=== PATIENT | male | born 1980 | race Caucasian/White ===

== ENCOUNTER 2020-01-12 19:30 | Inpatient (IN) | payer OTHER ==
[2020-01-11] MEDS: HYDROMORPHONE 1MG/1ML INJ IV PRN (23:30)
[~2020-01-12] VITALS: Ht 177.8 cm; Wt 99.8 kg
[2020-01-12] MEDS ORDERED: SODIUM CHLORIDE 0.9% 1000ML 1,000 ML IV STA (19:49)
[2020-01-12] MEDS ORDERED: MORPHINE SULFATE INJ 4 MG/ML INJ 1ML IV STA (19:49)
[2020-01-12] MEDS ORDERED: ONDANSETRON HCL INJ 2MG/ML 2ML 2 MG/ML VIAL IV STA (19:49)
[2020-01-12 20:05] LABS: BASOPHILS # (AUTO) 0.1 (0.0-0.1); BASOPHILS % 0.8 % (0.0-1.0); EOSINOPHILS # (AUTO) 0.1 (0.0-0.4); EOSINOPHILS % 1.2 % (0.0-6.0); HEMATOCRIT 43.5 % (38.2-49.6); LYMPHOCYTES # (AUTO) 1.6 (1.0-3.2); LYMPHOCYTES % 14.7 % (18.0-39.1); MEAN CORPUSCULAR HEMOGLOBIN 33.5 pg (28-32); MEAN CORPUSCULAR HGB CONC 36.8 g/dL (31-35); MEAN CORPUSCULAR VOLUME 91.2 fL (81-99); MONOCYTES # (AUTO) 1.1 (0.2-0.8); MONOCYTES % 10.2 % (4.4-11.3); NEUTROPHILS # (AUTO) 7.7 (2.1-6.9); NEUTROPHILS % 72.7 % (38.7-80.0); PLATELET COUNT 431 x10e3/uL (140-360); RED BLOOD COUNT 4.77 x10e6/uL (4.3-5.7); RED CELL DISTRIBUTION WIDTH 12.5 % (11.7-14.4)
[2020-01-12 20:12] LABS: BILIRUBIN,URINE MODERATE (NEGATIVE); CLARITY,URINE SL CLOUDY (CLEAR); COLOR,URINE ORANGE (YELLOW); KETONES,URINE 1+ (NEGATIVE); LEUKOCYTE ESTERASE ,URINE NEGATIVE (NEGATIVE); NITRITE,URINE NEGATIVE (NEGATIVE); PROTEIN,URINE DIPSTICK 1+ (NEGATIVE); URINE UROBILINOGEN 0.2 mg/dL (0.2 - 1)
[2020-01-12 20:22] LABS: AMORPHOUS SEDIMENT,URINE FEW (FEW); BACTERIA,URINE MODERATE /HPF; EPITHELIAL CELLS,URINE FEW /LPF; MUCUS,URINE MODERATE (RARE); WBC,URINE (MAN) 0-5 /HPF (0-5)
[2020-01-12 20:23] LABS: ALANINE AMINOTRANSFERASE 150 IU/L (0-55); ALBUMIN 3.9 g/dL (3.5-5.0); ALBUMIN/GLOBULIN RATIO 1.2 (0.8-2.0); ALKALINE PHOSPHATASE 82 IU/L (40-150); ANION GAP 16.6 mmol/L (8-16); BLOOD UREA NITROGEN 13 mg/dL (7-26); BUN/CREATININE RATIO 13 (6-25); CALCIUM 10.1 mg/dL (8.4-10.2); CARBON DIOXIDE 23 mmol/L (22-29); CHLORIDE 104 mmol/L (98-107); CREATINE KINASE 88 IU/L (30-200); CREATININE, SERUM 1.04 mg/dL (0.72-1.25); EST GLOMERULAR FILTRATION RATE > 60 ML/MIN (60-); GLUCOSE 147 mg/dL (74-118); LIPASE 492 U/L (8-78); POTASSIUM 3.6 mmol/L (3.5-5.1); SODIUM 140 mmol/L (136-145)
[2020-01-12 20:31] LABS: AMPHETAMINES SCREEN,URINE POSITIVE (NEGATIVE); BENZODIAZEPINES SCREEN,URINE NEGATIVE (NEGATIVE); PHENCYCLIDINE SCREEN,URINE NEGATIVE (NEGATIVE)
[2020-01-12] MEDS ORDERED: ONDANSETRON HCL INJ 2MG/ML 2ML 2 MG/ML VIAL IV PRN (20:45)
[2020-01-12] MEDS ORDERED: HYDROMORPHONE 1MG/1ML INJ IV PRN ×3 (20:45→22:15)
[2020-01-12] MEDS ORDERED: MORPHINE SULFATE 2 MG/ML SYR 1ML IV PRN (20:45)
[2020-01-12] MEDS ORDERED: SODIUM CHLORIDE 0.9% 1000ML 1,000 ML IV SCH (20:45)
[2020-01-12] MEDS ORDERED: MORPHINE SULFATE INJ 4 MG/ML INJ 1ML IV PRN (21:00)
[2020-01-12] MEDS ORDERED: HYDROCHLOROTH12.5 MG PO (21:26)
[2020-01-12] MEDS ORDERED: PROPRANOLOL HCL80 MG PO (21:26)
[2020-01-12] MEDS ORDERED: TRAZODONE HCL50 MG PO (21:26)
[2020-01-12] MEDS ORDERED: FLUOXETINE HCL40 MG PO (21:26)
[2020-01-12] MEDS ORDERED: LOSARTAN POTASS25 MG PO (21:26)
[2020-01-12] MEDS ORDERED: OMEPRAZOLE40 MG PO (21:26)
[2020-01-12] MEDS ORDERED: ADDERALL 20 MG20 MG PO (21:26)
--- NOTE | 2020-01-12 22:00 | NUR ---
Per Dr. Hollingsworth, ok to medicate with morphine at this time. Patient moaning in groaning in pain. VS remain normal.
--- NOTE | 2020-01-12 22:05 | Diagnostic Imaging Report ---
EXAM: CT Abdomen and Pelvis WITH contrast INDICATION: ^Epigastric COMPARISON: None. TECHNIQUE: Abdomen and pelvis were scanned utilizing a multidetector helical scanner from the lung base to the pubic symphysis after administration of IV contrast. Coronal and sagittal reformations were obtained. Routine protocol was performed. Scan was performed when during portal venous phase. IV CONTRAST: 100 mL of Isovue 370 ORAL CONTRAST: Water COMPLICATIONS: None RADIATION DOSE: Total DLP: 800 mGy*cm Estimated effective dose: (DLP x 0.015 x size factor) mSv CTDIvol has been reviewed. It is below the limits set by the Radiation Protocol Committee (RPC). Dose modulation, iterative reconstruction, and/or weight based adjustment of the mA/kV was utilized to reduce the radiation dose to as low as reasonably achievable. FINDINGS: LINES and TUBES: None. LOWER THORAX: Unremarkable HEPATOBILIARY: No focal hepatic lesions. No biliary ductal dilation. GALLBLADDER: No radio-opaque stones or sludge. No wall thickening. SPLEEN: No splenomegaly. PANCREAS: Edematous appearance of the pancreas with mild peripancreatic fat stranding. No discrete pancreatic mass lesion. No ductal dilatation. No fluid collection. ADRENALS: No adrenal nodules KIDNEYS/URETERS: Kidneys enhance symmetrically. No hydronephrosis. No cystic or solid mass lesions. No stones. GI TRACT: No abnormal distention, wall thickening, or evidence of bowel obstruction. Appendix is surgically absent. PELVIC ORGANS/BLADDER: Unremarkable. LYMPH NODES: Prominent subcentimeter upper abdominal lymph nodes, likely reactive. VESSELS: Unremarkable. PERITONEUM / RETROPERITONEUM: No free air or fluid. BONES: Unremarkable. SOFT TISSUES: Unremarkable. IMPRESSION: Acute pancreatitis. No pseudocyst, drainable fluid collection, or other complication. Signed by: Giovanni Smith MD on 01/12/2020 10:02 PM
[2020-01-12] MEDS ORDERED: ACETAMINOPHEN 325 MG TAB PO PRN (22:15)
--- NOTE | 2020-01-12 22:15 | NUR ---
Pt admitted to room 106 via WC from home. Pt alert and oriented to name, hospital, and diagnosis: Pancreatitis. Pt c/o severe abdominal pain, previously medicated in ER. Skin warm and flushed. Ambulatory. Last BM 01/11. Denies dysuria urine dark sade. Oriented to room. Call light within reach. Bed low and locked. Will continue to monitor.
[2020-01-12 22:31] VITALS: BP 152/96
--- NOTE | 2020-01-12 23:00 | NUR ---
Dr. Mclaughlin informed of Pt's elevated pain level, ordered increased Dilaudid 1mg every 3hrs, MRCP, and U/S abdomen.
[2020-01-12 23:30] VITALS: BP 152/96
[2020-01-12] MEDS: HYDROMORPHONE 1MG/1ML INJ IV PRN (23:30)
[2020-01-12] MEDS ORDERED: IOPAMIDOL 370 MG/ML 200 ML INFUS..BTL INJ ONE (23:36)
[2020-01-12] MEDS ORDERED: SODIUM CHLORIDE 0.9% 50ML 50 ML ONE (23:36)
[2020-01-13] MEDS: ONDANSETRON HCL INJ 2MG/ML 2ML 2 MG/ML VIAL IV PRN ×3 (01:30→19:11)
[2020-01-13] MEDS: HYDROMORPHONE 1MG/1ML INJ IV PRN ×4 (02:30→11:19)
[2020-01-13] MEDS: LACTATED RINGER'S 1,000 ML INJ SCH ×3 (03:20→12:35)
[2020-01-13 04:00] VITALS: BP 155/107
[2020-01-13 05:37] LABS: BASOPHILS % 0.3 % (0.0-1.0); EOSINOPHILS # (AUTO) 0.1 (0.0-0.4); EOSINOPHILS % 0.7 % (0.0-6.0); HEMATOCRIT 45.5 % (38.2-49.6); HEMOGLOBIN 16.5 g/dL (14.0-18.0); LYMPHOCYTES # (AUTO) 0.7 (1.0-3.2); LYMPHOCYTES % 4.9 % (18.0-39.1); MEAN CORPUSCULAR HEMOGLOBIN 33.4 pg (28-32); MEAN CORPUSCULAR HGB CONC 36.3 g/dL (31-35); MEAN CORPUSCULAR VOLUME 92.1 fL (81-99); MONOCYTES # (AUTO) 0.9 (0.2-0.8); MONOCYTES % 6.3 % (4.4-11.3); NEUTROPHILS # (AUTO) 11.9 (2.1-6.9); NEUTROPHILS % 87.4 % (38.7-80.0); PLATELET COUNT 391 x10e3/uL (140-360); RED BLOOD COUNT 4.94 x10e6/uL (4.3-5.7); RED CELL DISTRIBUTION WIDTH 12.6 % (11.7-14.4)
[2020-01-13 06:08] LABS: ALANINE AMINOTRANSFERASE 112 IU/L (0-55); ALBUMIN 3.5 g/dL (3.5-5.0); ALBUMIN/GLOBULIN RATIO 1.3 (0.8-2.0); ALKALINE PHOSPHATASE 70 IU/L (40-150); BLOOD UREA NITROGEN 11 mg/dL (7-26); BUN/CREATININE RATIO 12 (6-25); CALCIUM 9.2 mg/dL (8.4-10.2); CARBON DIOXIDE 22 mmol/L (22-29); CHLORIDE 108 mmol/L (98-107); CHOL/HDL RATIO 4.4 (3.9-4.7); CHOLESTEROL 180 MD/DL (0-199); CREATININE, SERUM 0.89 mg/dL (0.72-1.25); EST GLOMERULAR FILTRATION RATE > 60 ML/MIN (60-); GLUCOSE 163 mg/dL (74-118); HDL CHOLESTEROL 41 MG/DL (40-60); LDL CHOLESTEROL 94 MG/DL (60-130); SODIUM 140 mmol/L (136-145); TRIGLYCERIDES 225 MG/DL (0-149)
--- NOTE | 2020-01-13 07:00 | NUR ---
Report given to morning nurse. Pt moaning and groaning c/o abdominal pain, previously medicated. Morning nurse informed Pt will f/u with Dr. Mclaughlin.
[2020-01-13 08:00] VITALS: BP 156/102
[2020-01-13 08:09] LABS: LIPASE 1556 U/L (8-78)
[2020-01-13] MEDS ORDERED: KETOROLAC TROMETHAMINE 30 MG/ML VIAL IV ONE (08:15)
--- NOTE | 2020-01-13 08:49 | NUR ---
MADE COPY OF CARD FROM [facility] AND TOOK TO BUSINESS OFFICE.
[2020-01-13 08:50] VITALS: BP 156/102
--- NOTE | 2020-01-13 10:22 | Diagnostic Imaging Report ---
Abdominal Ultrasound Clinical Diagnosis: Evaluate for biliary obstruction. Elevated lipase. Generalized abdominal pain Comparison: No previous ultrasound abdomen Technique: Multiple transaxial and longitudinal images were obtained through the abdomen with real time ultrasonography. A low-frequency curvilinear transducer was utilized. Multiple images were submitted for interpretation. Report: The patient has large amount of bowel gas that limits the visualization of the abdominal viscera. Liver: The liver measures 15.9 cm in the right midaxillary line. There are no focal masses or abnormal cysts. The echogenicity is normal. Spleen: The spleen measures 12.5 cm in the left mid axillary line. There are no focal masses or cysts. Gallbladder: The transverse diameter is within normal limits. The wall measures 3 mm. There are no shadowing stones visualized. There is no sludge visualized. Sonographic Jain's sign is negative. Biliary tree: There is no evidence of intra or extra hepatic biliary ductal dilatation. The common bile duct measures 3 mm. Portal vein: The portal vein measures 12 mm. There is hepatopedal flow. Hepatic veins: Not visualized Pancreas: The pancreas is not well seen secondary to overlying bowel gas. Ascites: Absent Pleural Effusion: Absent Right kidney: The right kidney measures 10.2 x 4.6 x 3.7 cm. There is no evidence of hydronephrosis, mass, cyst. Left kidney: The left kidney measures 11.3 x 5.5 x 3.9 . There is no evidence of hydronephrosis, mass, cyst. IVC/Aorta: Poorly visualized. Impression: Limited abdominal ultrasound because of bowel gas. There is no significant abnormality of the gallbladder. There is no extrahepatic or intrahepatic biliary dilatation on this exam. Pancreas is not visualized. Signed by: Charli Boo MD on 01/13/2020 10:18 AM
[2020-01-13 13:21] VITALS: BP 152/108
--- NOTE | 2020-01-13 13:25 | NUR ---
Pt. states he is in pain. [facility] provided hospitality and information on how to reach service assistant, if needed. Will follow as able. LENCHO ELIZABETH [facility] Department O: [phone]
--- NOTE | 2020-01-13 13:44 | NUR ---
Dr. Mclaughlin here to see pt.
[2020-01-13] MEDS ORDERED: HYDROMORPHONE 1MG/1ML INJ IV PRN (13:45)
[2020-01-13] MEDS ORDERED: LACTATED RINGER'S 1,000 ML INJ ONE (14:00)
[2020-01-13] MEDS: KETOROLAC TROMETHAMINE 30 MG/ML VIAL IV PRN ×2 (14:31→17:19)
--- NOTE | 2020-01-13 14:38 | Diagnostic Imaging Report ---
MRCP (magnetic resonance cholangiopancreatography) HISTORY: Pancreatitis Comparison: None Technique: Multiplanar and multisequence MRI images of the abdomen were obtained without contrast. Three-dimensional reconstructed images of the biliary tree are also reviewed. FINDINGS: The examination is severely limited by patient respiratory motion. The common bile duct is not well visualized on this examination. However, no dilated tubular structure is seen in the expected location of the common bile duct. The gallbladder demonstrates no intraluminal defect or wall thickening. No definite mass is identified in the region of the ampulla or pancreatic head. No pancreatic ductal dilation is appreciated. Grossly unremarkable appearance of the liver, spleen, adrenal glands, and kidneys. The visualized bowel loops appear normal in caliber. Small bilateral pleural effusions, left greater than right. Small volume ascites is noted. Impression: 1. Severely limited study. 2. Common bile duct is not well visualized on this examination. However, no dilated tubular structure is seen in the expected location of the common bile duct. Suggest correlation with serum bilirubin levels to determine the need for further workup with ERCP. 3. Small volume ascites. 4. Small bilateral pleural effusions, left greater than right. Signed by: Geo Byrne MD on 01/13/2020 2:35 PM
[2020-01-13] MEDS: HYDROMORPHONE 2MG/ML 2 MG/ML ML IV PRN ×2 (14:40→19:11)
[2020-01-13 16:33] VITALS: BP 130/95
--- NOTE | 2020-01-13 19:32 | NUR ---
report given to oncoming nurse, walking rounds complete, pt stable at shift change.
--- NOTE | 2020-01-13 19:45 | NUR ---
REPORT GIVEN FROM DAYTIME NURSE. PATIENT RESTING IN BED, REASSESSED PATIENT FROM PREVIOUS PAIN MEDICATION ADMINISTRATION. PATIENT VOICED THAT PAIN WAS BETTER SINCE ADMINISTRATION, NO SIGNS OF DISTRESS NOTED, PATIENT ALERT AND ORIENTED. CALL LIGHT WITHIN REACH, WILL CONTINUE TO MONITOR.
--- NOTE | 2020-01-13 20:10 | NUR ---
PATIENT RESTING IN BED ALERT AND ORIENTED, NO SIGNS OF DISTRESS NOTED. IV FLUIDS ARE RUNNING AT ORDERED RATE AND PATIENT VOICES NO SEVERE PAIN THIS TIME WHEN ASKED. BED IS IN LOWEST POSITION, BOTH SIDE RAILS ARE UP, CALL LIGHT IS WITHIN EASY REACH, WILL CONTINUE TO MONITOR.
--- NOTE | 2020-01-13 20:20 | NUR ---
PCT INFORMED NURSE THAT SHE WENT BY TO TAKE PATIENT'S VITALS AND THE PATIENT INFORMED HER THAT HE WILL BE USING THE RESTROOM FIRST. PCT INFORMED PATIENT THAT SHE WOULD COME BACK TO ROOM TO TAKE HIS VITALS WHEN HE IS DONE.
[2020-01-13] MEDS ORDERED: NALOXONE HCL INJ 0.4 MG/ML AMP ONE (21:16)
[2020-01-13] MEDS ORDERED: DEXTROSE 50% SYRINGE 50 ML IV ONE (21:26)
[2020-01-13] MEDS ORDERED: SODIUM BICARBONATE 8.4% 50 ML VIAL IV ONE (21:26)
[2020-01-13] MEDS ORDERED: CALCIUM CHLORIDE 10% 1.36 MEQ/ML 10ML SYR IV ONE (21:26)
[2020-01-13] MEDS ORDERED: NALOXONE HCL INJ 0.4 MG/ML AMP IV ONE (21:26)
[2020-01-13] MEDS ORDERED: LIDOCAINE HCL/D5W 4 MG/ML 2000 MG/500 ML BAG IV ONE (21:26)
[2020-01-13] MEDS ORDERED: EPINEPHRINE HCL SYRINGE IV ONE (21:26)
--- NOTE | 2020-01-13 21:35 | NUR ---
PCT CHECKED ON PATIENT BY KNOCKING ON BATHROOM DOOR TO NO RESPONSE. PCT FOUND NURSE AND BOTH ENTERED RESTROOM AND UPON ASSESSMENT FOUND PATIENT UNRESPONSIVE SLUMPED DOWN ON TOILET AT 20:55. BENJA TOVAR WAS CALLED AND PATIENT WAS SAFELY LOWERED DOWN TO THE FLOOR AND CHEST COMPRESSIONS WERE STARTED IMMEDIATELY. BENJA TOVAR TEAM ARRIVED AND PATIENT WAS TRANSPORTED SAFELY FROM FLOOR TO BED USING SLIDING BOARD. CPR WAS RESUMED AFTER PATIENT TRANSPORTED FROM FLOOR TO BED. SEE CODE BLUE SHEETS. TIME OF 21:27.
--- NOTE | 2020-01-13 21:38 | NUR ---
spoke to pamela vital from [facility]. . primary nurse made aware.
--- NOTE | 2020-01-13 21:55 | NUR ---
SPOKE WITH THE PATIENT'S MOTHER AND FATHER AND INFORMED THEM OF THE THE PATIENT'S AND TO REPORT TO HOSPITAL. SPOKE WITH DR. SANCHEZ TO INFORM HIM OF THE PATIENT'S STATUS WELL. AWAITING FOR THE ARRIVAL OF FAMILY.
--- NOTE | 2020-01-13 22:02 | History and Physical ---
CHIEF COMPLAINT: Abdominal pain. HISTORY OF PRESENT ILLNESS: Patient was seen and evaluated early this afternoon at approximately 130pm with nurse Yeni at bedside. 39-year-old male with known history of ADHD, hypertension, as well as some other psychiatric disorders presented to the ED with complaints of acute onset of abdominal pain. The patient reports he has a history of acute pancreatitis in the past of note about a year ago treated in a different facility. He was told that his pancreatitis was secondary to alcoholic pancreatitis. He reports drinking 2 vodka drinks per night on a consistent basis. He does report drinking some alcohol last night. He states that yesterday morning he woke up, he had sudden onset of abdominal pain, epigastrically and progressively got worse throughout the day. Denies chest pain, vomiting, palpations, shortness of breath. Denies any drug abuse. The patient is seen and evaluated at bedside on the medical floor with the nurse present including the mri tech who was drawning blood. He is currently reporting that he has significant pain despite being on IV Dilaudid. Early this morning the nurse called me of his pain and toradol was added to his regimen. I reviewed the ct abdomen with the patient and discussed the findings of acute pancreatitis. REVIEW OF SYSTEMS: Pertinent positive for epigastric abdominal pain. Denies chest pain, vomiting, shortness of breath, diarrhea, palpitations The rest of 14-point review of systems is reviewed with the patient and is negative. ALLERGIES: NO KNOWN DRUG ALLERGIES. HOME MEDICATIONS: Losartan, omeprazole, propranolol, trazodone, Adderall, fluoxetine, hydrochlorothiazide. PAST MEDICAL HISTORY: Hypertension, ADHD, acid reflux, hypertension. PAST SURGICAL HISTORY: Reports none. FAMILY HISTORY: unknown SOCIAL HISTORY: He denies drug history. No smoking. He is a drinker, drinks vodka 2 drinks a day daily for years. PHYSICAL EXAMINATION: VITAL SIGNS: Temperature is 96.5, pulse is 101, respiratory rate is 16, blood pressure is 130/95, pulse ox 99% on room air. GENERAL: Alert and oriented x3. Cooperative on examination. HEENT: Head is normocephalic and atraumatic. Eyes; pupils are equal, round and reactive to light bilaterally. Extraocular movements are intact bilaterally. Throat; no evidence of erythema or exudates in the posterior pharynx. Has poor dentition. NECK: Supple. Good range of motion. PULMONARY: Clear to auscultation bilaterally. No wheezing, no rales, no rhonchi, no crackles appreciated. CARDIOVASCULAR: Positive S1 and S2. No murmurs, rubs, or gallops appreciated, regular rate and rhythm ABDOMEN: Mild Tender to palpation in the epigastric area. No guarding or rebound. Bowel sounds positive. Non-distended, and no concerns for peritonitis MUSCULOSKELETAL: Strength is 5/5 throughout. No evidence of any muscle deficits on examination. No weakness appreciated. SKIN: Intact. Warm to touch. Good cap refill. PSYCHIATRIC: Normal affect and mood. States he is doing well. EXTREMITIES: No edema. Good range of motion throughout. LABORATORY DATA: Labs show white count was 13.5, hemoglobin is 16.5, hematocrit is 45.5, and platelets of 391. Chemistry; sodium 140, potassium 4, chloride 108, bicarb 22, anion gap of 14, BUN is 11, creatinine is 0.9, and glucose 163. A1c is 5.5. Total bilirubin is 0.9, calcium 9.2, AST 50, ALT 112, alkaline phosphatase 70. Troponins were all negative. Total protein 6.2. Triglycerides 225, LDL 94. His lipase level was 1556, on admission is 492. Urinalysis noted. Toxicology screen shows positive amphetamine. MICROBIOLOGY: None. IMAGING STUDIES: CT abdomen and pelvis shows acute pancreatitis, edematous appearance of the pancreas with mild peripancreatic fat stranding, No pseudocyst, drainable fluid collection, or other complications. No free air or fluid appreciated. Abdominal ultrasound shows limited abdominal ultrasound because of bowel gas. There are no significant abnormalities of the gallbladder. There is no extrahepatic or intrahepatic biliary dilatation on examination. MRCP shows common bile duct is not well visualized on exam, however, no dilated tubular structures seen in the expected location of the common bile duct. Small volume ascites. Small bilateral pleural effusions, left greater than right. IMPRESSION: 1. Acute pancreatitis, likely alcoholic pancreatitis. 2. Chronic alcohol abuse. 3. Hypertension. 4. History of multiple psychiatric disorders. 5. Positive Urine drug screen amphetamines on adderall PLAN: At this time, continue with strict n.p.o., IV fluids, and pain control. I did increase the pain medication as his lipase level did increase. MRCP, abdominal ultrasound/ right upper quadrant has been ordered with above results. Lipid panel and A1C ordered with results above. Seems to be likely alcoholic pancreatitis. GI has been consulted for further assistance and evaluation. He will be on Lovenox for DVT prophylaxis. Encourage ambulation. Once his lipase levels continue to improve, we will decrease the pain medication and initiate a diet. He is going to continue with LR 150 mL/h and continue with n.p.o. status. Cardiac telemetry was offered at bedside but the patient refused it during the interview. I discussed plan of care with the patient at bedside with the nurse present throughout the conversation and he verbalized understanding. MD GERA Elkins/[facility]ida /[id number] NATALIE
--- NOTE | 2020-01-13 22:11 | NUR ---
this nurse spoke to family at time. family undecided if they will come up. primary nurse made aware.
--- NOTE | 2020-01-13 22:26 | NUR ---
KP HAS ARRIVED TO SEE FAMILY IN ROOM. Addendum: 01/14/20 at 0323 by Aram Mascorro RN ARRIVED AT [id number]
--- NOTE | 2020-01-13 22:51 | NUR ---
PATIENT'S MOTHER, FATHER, AND BROTHER ARIANA ARRIVED. INFORMED THEM THAT [facility] WILL BE ARRIVING WITHIN 30 MINUTES, THEY HAD PREVIOUSLY REQUESTED. ALLOWED FAMILY TO PRIVATELY GRIEVE.
--- NOTE | 2020-01-13 23:42 | NUR ---
ASSESSMENT: Spirit[facility] Nursing Tech called out per family request. Pt's family overwhelmed with grief. Pt's family expressing emotions thru words and tears. Intervention: Provided empathic listening and grief support. Provided committal prayer. Outcome: Pt's family expressed appreciation for support. Followed up w/ FABIAN. LENCHO [facility] Spiritual Care Department O: [phone]
--- NOTE | 2020-01-13 23:55 | NUR ---
spoke to giuliano farrell at [facility] regarding case. primary nurse made aware.
--- NOTE | 2020-01-14 00:45 | NUR ---
AFTER SPEAKING WITH FAMILY, THEY HAD DECIDED TO HAVE [facility] COME AND TRANSPORT PATIENT FROM HOSPITAL. CONSENT WAS SIGNED BY FATHER WITH THE PRESENCE OF ANOTHER NURSE A WITNESS. THE HOME WAS PROMPTLY CALLED AND VOICED THAT THEY WOULD COME TO RECEIVE THE PATIENT WITHIN AN HOUR TO AN HOUR AND A HALF.
--- NOTE | 2020-01-14 02:30 | NUR ---
[facility] HAS COME TO TAKE PATIENT AWAY. TIME OF PICKUP WAS AT 0227.
[2020-01-14] MEDS ORDERED: ENOXAPARIN 30 MG/0.3 ML SYR SC SCH (17:00)
--- NOTE | 2020-01-15 03:02 | Discharge Summary ---
DATE OF : 01/13/2020. FINAL DIAGNOSES: 1. Sudden , unknown etiology. 2. Cardiac arrest/pulseless electrical activity. 3. Acute pancreatitis, likely secondary to alcoholic pancreatitis. 4. History of chronic alcohol abuse. 5. Hypertension. 6. History of attention deficit hyperactivity disorder, on Adderall. 7. The time of was 2126. CONSULTANTS: GI. VITAL SIGNS: Temperature is 96.5, pulse 101, respiratory rate is 16, blood pressure 130/95, pulse ox 99% on room air. LABORATORY DATA: Labs show white count was 13, hemoglobin 16, hematocrit 45, and platelets of 391. Chemistry; sodium 140, potassium 4, chloride 108, bicarb 22, anion gap of 14, BUN of 11, creatinine of 0.89, glucose 163. Hemoglobin A1c 5.5. Calcium 9.2, total bilirubin is 0.9, AST 50, ALT 112, alkaline phosphatase 70. CK is 88, CK-MB 1.7. Troponins were negative x3. Albumin 3.5, triglycerides 225, LDL 94. His lipase was 492 on admission, then increased to 1556. Urinalysis shows 1+ ketones, 1+ protein, cloudy urine. Urine drug screen shows positive amphetamine. Alcohol level was negative. EKG: normal sinus rhythm MICROBIOLOGY: None. IMAGING STUDIES: CT abdomen and pelvis shows acute pancreatitis. No pseudocyst, drainable fluid collection, or other complication. There is no evidence of any free air or any fluid. There is no abnormal distention, wall thickening, or absence or any evidence of any bowel obstruction. In relation to the pancreas CT report, showed edematous appearance of the pancreas with mild peripancreatic fat stranding. There is no discrete pancreatic mass lesion. No ductal dilatation. No fluid collection. No evidence of splenomegaly. Abdominal ultrasound performed shows limited abdominal ultrasound because of gas. There is no significant abnormality of the gallbladder. There is no extrahepatic or intrahepatic biliary dilatation on exam. Pancreas is not visualized. MRCP was performed, shows the common bile duct is not well visualized on this examination. There is no evidence of any palpable tubular structure; however, no tubular structure is seen in the expected location of the common bile duct. No definite mass is identified in the region of the ampulla or pancreatic head. No pancreatic ductal dilatation is appreciated. Grossly unremarkable appearance of liver, spleen, lungs, and kidneys. There is small bilateral pleural effusion, left greater than right. Small volume ascites noted. Final impression shows common bile duct is not visualized in this examination; however, no dilated tubular structures seen in the expected location of the common bile duct. Small volume ascites. Small bilateral pleural effusion, left greater than right. HOSPITAL COURSE: A 39-year-old male with history of alcoholic pancreatitis, of note has a history of chronic alcohol abuse, in which he drinks approximately 2 vodkas per day during my interview when I discussed this with him, comes into the ED with complaints of abdominal pain, that began early in the morning of admission. The patient reports that he has had similar problems about a year ago with severe abdominal pain secondary to alcoholic pancreatitis. He was treated accordingly in the past with n.p.o., IV fluids, and pain control, in which it resolved, did well with no complaints. He reports he had a full workup and it was thought to be from underlying alcohol abuse. The patient reports that he was doing fine up until the day of admission, in which he began to complain of epigastric abdominal pain. Patient does endorse drinking the day prior to admission. Due to the worsening pain he came to the emergency room for further evaluation. The patient was evaluated in the emergency room by the ER physician with CT imaging of the abdomen and pelvis consistent with acute pancreatitis. The patient apparently was in excruciating pain in the ER and required significant amount of pain control. The patient was then brought to the medical floor. Apparently, the patient continued to complain of pain, screaming and hollering, unable to keep his neighbors asleep according to the nursing staff despite being iv dilaudid for pain control. Of note, he reports that this is similar pain that he has had in the past from his acute pancreatitis. The patient was interviewed and seen at bedside with the nurse Yeni present throughout the entire conversation in the early afternoon 01/13/20. Later during my interview with the patient, he reports having epigastric abdominal pain, that's kind of similar to his acute pancreatitis flare up a year ago. Denies any chest pain, palpitations, shortness of breath, diarrhea or any other complaints. During my exam, the patient had mild tender to palpation in the epigastric area similar to his pancreatitis in the past he reports. He had no rebound or any guarding, but did appreciate some pain. I reviewed the imaging studies with the patient including the CT abdomen and pelvis at that time, that was available during my interview with him and he was found to show just acute pancreatitis. Ultrasound and MRCP were not available during my interview with him, but later showed negative findings for any obstruction or cause for the acute pancreatitis. His abdominal ultrasound also was found to be negative for any acute causes of his acute pancreatitis. No evidence of any CBD, common bile duct dilatation, or stone on MRCP or abdominal ultrasound. The patient reports still some evidence of abdominal pain. Nurse calls me that morning on 01/13/2020, in which I ordered some IV Toradol due to excruciating pain. During my interview with him later that early afternoon on 01/13/2020, he stated that his pain was still not better. Medications were adjusted accordingly. Apparently, the patient was doing fine throughout most of the afternoon per reports. Cardiac telemetry was offered to the patient during my interview but he refused and reports no cardiac history. He maintained on IV fluids, pain control, and n.p.o. as per normal treatments of acute pancreatitis. GI was consulted as well. Nursing staff report the patient was doing much better throughout the afternoon with very little pain. Later in the early evening time, the patient was seen several times by the nursing staff and the PCT and was found to be normal, awake, oriented with no complaints. The afternoon nurse on check out to the evening nurse reports that the patient was doing much better. Nursing staff spoke with the patient and according to their report he had no other issues. Of note, the patient was evaluated several times during the day by the day nurse with no issues. In the evening time, he was evaluated several times by the nursing staff on several occasions and the patient's pain was improved tremendously on the adjustment of the pain medications. Of note, he was interviewed by the evening nurse who introduced himself as the nurse. According to the nurse the patient was talking, was alert, awake and oriented with no sign of distress. He was seen several times according to the reports by the nursing staff that evening. He was awake and was alert. He was oriented. Of note, the PCT was in the process of performing some vital signs in the early evening time as per routine protocol. When the PCT walked in the patient's room he informed her during that time he wanted to go to the restroom. Apparently he was awake, alert and oriented and walked himself to the restroom with the IV pole with no issues according to the reports. During that time apparently, there was no issue with the patient. He was alert and oriented x3 according to the nursing staff and the PCT. According to the reports the PCT left for a short time when the PCT came to evaluate him and to do vital signs, they found the patient unresponsive in the restroom, slumped over on the toilet sit. A Code Blue was called and he resuscitated for a significant period of time by the ER physician. The patient was not able to be resuscitated and was eventually pronounced at 2126. The information that is being dictated at this time was being provided to me by the nursing staff based on what they saw and what they have seen. During that time, family were notified and they came to the hospital. Condolences were given to the family. Once again, the etiology of his sudden cardiac arrest is unknown. This was a sudden with unknown etiology. Time of was 2126. The patient was pronounced by the ER physician at that time 2126 after trying to resuscitate the patient. Once again, the etiology of the patient's sudden is unknown at this time. MD GERA Elkins/DEEPTHI /[id number] NATALIE
== END 2020-01-13 21:27 | disposition expired | DRG 871 ==
LOC: ER 19:30 → ERHOLD 20:47 → MED/SURG 22:25 → OBSVTOIN 01-13 13:21
PROVIDERS: ADMIT Internal Medicine; ATTEND Internal Medicine
PROC: 5A1935Z Respiratory Ventilation, Less than 24 Consecutive Hours (ICD-10-PCS; principal; 2020-01-13)
PROC: 0BH17EZ Insertion of Endotracheal Airway into Trachea, Via Natural or Artificial Opening (ICD-10-PCS; 2020-01-13)
PROC: 5A12012 Performance of Cardiac Output, Single, Manual (ICD-10-PCS; 2020-01-13)
DX: A41.9 Sepsis, unspecified organism (principal); K85.20 Alcohol induced acute pancreatitis without necrosis or infection; J96.01 Acute respiratory failure with hypoxia; F10.10 Alcohol abuse, uncomplicated; I10 Essential (primary) hypertension; I46.9 Cardiac arrest, cause unspecified; R09.2 Respiratory arrest; F15.10 Other stimulant abuse, uncomplicated; F90.9 Attention-deficit hyperactivity disorder, unspecified type; K21.9 Gastro-esophageal reflux disease without esophagitis
CPT/HCPCS: 31500; 36415; 74177; 74181; 76700; 80053; 80061; 80307; 80320; 81001; 82550; 82553; 83036; 83690; 84484; 85025; 92950; 93005; 96361; 99284; G0378; J0171; J1170; J1885; J2001; J2270; J2310; J2405; J7030; J7121; J7799; Q9967